=== PATIENT | male | born 2000 | race Caucasian/White ===

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

== ENCOUNTER 2019-06-15 07:23 | Emergency (ER) | payer MEDICAID, OTHER ==
[~2019-06-15] VITALS: Ht 180.3 cm; Wt 66.0 kg
[~2019-06-15 07:23] MED LIST changes: -AZIT500T5 PO; +AZIT500T9 PO; +CLIN-97 PO
[2019-06-15 07:29] VITALS: BP 125/80
[2019-06-15] MEDS ORDERED: normal saline 1000ML IV soln IVB ONE (08:15)
[2019-06-15] MEDS ORDERED: proCHLORperazine 10 MG/2 ml inj IV ONE (08:15)
--- NOTE | 2019-06-15 08:15 | NUR ---
PATIENT STATES HE DRANK LARGE AMOUNT OF ALCOHOL LAST NIGHT AND WOKE UP THIS MORNING, VOMITING BLOOD AND HAVING DIARRHEA. GENERALIZED ABDOMINAL PAIN NOTED, RATED 10/10. PATIENT STATES HE THINKS HE HAS "ALCOHOL POISONING".
[2019-06-15 08:28] LABS: BASOPHILS # (AUTO) 0.1 X10'3 (0-0.2); BASOPHILS % (AUTO) 1.1 % (0-1); EOSINOPHILS # (AUTO) 0.1 X10'3 (0-0.9); EOSINOPHILS % (AUTO) 2.1 % (0-6); HEMATOCRIT 48.3 % (42.0-52.0); HEMOGLOBIN 16.5 g/dl (14.0-17.9); LYMPHOCYTES # (AUTO) 1.7 X10'3 (1.1-4.8); LYMPHOCYTES % (AUTO) 25.8 % (21-51); MEAN CORPUSCULAR HEMOGLOBIN 32.2 PG (27.0-31.0); MEAN CORPUSCULAR HGB CONC 34.2 g/dL (33.0-36.5); MEAN CORPUSCULAR VOLUME 94.1 FL (78-98); MEAN PLATELET VOLUME 7.8 FL (7.4-10.4); MONOCYTES # (AUTO) 0.8 X10'3 (0-0.9); MONOCYTES % (AUTO) 11.3 % (2-12); NEUTROPHILS % (AUTO) 59.7 % (42-75); PLATELET COUNT 276 X10'3 (140-440); RED BLOOD COUNT 5.14 X10'6 (4.70-6.10); RED CELL DISTRIBUTION WIDTH 12.6 % (11.5-14.5); WHITE BLOOD COUNT 6.7 X10'3 (4.5-11.0)
[2019-06-15 08:43] LABS: ALANINE AMINOTRANSFERASE 16 U/L (12-78); ALBUMIN 4.2 G/DL (3.4-5.0); ALBUMIN/GLOBULIN RATIO 1.3 (1.1-1.5); ALKALINE PHOSPHATASE 48 IU/L (20-180); ANION GAP 11 (8-16); ASPARTATE AMINO TRANSFERASE 16 U/L (10-37); BILIRUBIN,TOTAL 0.6 MG/DL (0.1-1.0); BLOOD UREA NITROGEN 10 MG/DL (7-18); CALCIUM 8.8 MG/DL (8.5-10.1); CHLORIDE 109 MMOL/L (99-107); CREATININE 0.91 MG/DL (0.60-1.10); GLUCOSE 99 MG/DL (70-104); POTASSIUM 3.5 MMOL/L (3.5-5.1); SODIUM 144 MMOL/L (135-145); TOTAL CARBON DIOXIDE 24.4 MMOL/L (24-32); TOTAL PROTEIN 7.5 G/DL (6.4-8.2); eGFR > 90 ML/MIN
[2019-06-15 08:44] LABS: LIPASE 64 U/L (73-393)
[2019-06-15] MEDS ORDERED: PANT-47 PO (09:23)
[2019-06-15] MEDS ORDERED: ONDA8TAB6 PO (09:23)
== END 2019-06-15 09:51 | disposition home or self-care (01) ==
LOC: ER 07:25
DX: K29.20 Alcoholic gastritis without bleeding (principal); R11.10 Vomiting, unspecified; R10.13 Epigastric pain; R10.32 Left lower quadrant pain; F12.90 Cannabis use, unspecified, uncomplicated; Z88.0 Allergy status to penicillin; Z88.2 Allergy status to sulfonamides; Z79.2 Long term (current) use of antibiotics
CPT/HCPCS: 36415; 71045; 80053; 80320; 83690; 85025; 96361; 96374; 99284; J0780; J7030

== ENCOUNTER 2021-08-10 11:43 | Emergency (ER) | payer MEDICAID, OTHER ==
[~2021-08-10] VITALS: Ht 180.3 cm; Wt 80.9 kg
[~2021-08-10 11:43] MED LIST changes: -ERYT333T76 PO; +ERYT333T78 PO; +IBUP-2766 PO; -IBUP100O20 PO; +ONDA8TAB6 PO; +PANT-47 PO
--- NOTE | 2021-08-10 13:25 | NUR ---
US tech at bedside
[2021-08-10] MEDS ORDERED: naproxen 500mg tablet PO ONE (13:40)
[2021-08-10 15:22] LABS: CLARITY,URINE CLEAR (Clear); COLOR,URINE YELLOW (Yellow); GLUCOSE, URINE 100 mg/dl (Neg); KETONES,URINE 15 mg/dl (Neg); LEUKOCYTE ESTERASE ,URINE NEGATIVE (Neg); NITRITES, URINE NEGATIVE (Neg); OCCULT BLOOD,URINE NEGATIVE (Neg); PROTEIN,URINE 30 mg/dl (Neg); UA COLLECTION TYPE VOIDED
[2021-08-10 15:42] LABS: MUCUS STRANDS MANY /LPF (Neg); SQUAMOUS EPITHELIAL CELL,UR FEW /LPF (FEW)
[2021-08-10 15:43] LABS: BACTERIA,URINE FEW /HPF (Neg); RBC,URINE 0-2 /HPF (0-2)
[2021-08-10 15:44] LABS: CAL OXALATE CRYSTALS 1+ /HPF (NEGATIVE)
[2021-08-10 17:45] VITALS: BP 120/77
== END 2021-08-10 17:50 | disposition home or self-care (01) ==
LOC: ER 11:44
DX: N50.812 Left testicular pain (principal); N50.811 Right testicular pain; M54.50 Low back pain, unspecified; F12.90 Cannabis use, unspecified, uncomplicated; Z79.899 Other long term (current) drug therapy; Z88.0 Allergy status to penicillin; Z88.2 Allergy status to sulfonamides
CPT/HCPCS: 36415; 74176; 76870; 81001; 87077; 87088; 87186; 87491; 93976; 99284